=== PATIENT | female | born 1955 | race Caucasian/White ===

== ENCOUNTER → 2016-10-15 | Outpatient (CLI) | payer OTHER ==
--- NOTE | 2016-10-15 14:57 | REPMRS ---
Patient History The patient states she has not had a clinical breast exam in over a year. The patient states she has not had a clinical breast exam in over a year. Patient is postmenopausal. No known family history of cancer. Digital Woman Screen Mammo: October 15, 2016 - Exam #: [id number] Bilateral CC and MLO view(s) were taken. Technologist: Nikole Schmid, Technologist FINDINGS: The breast tissue is extremely dense which could obscure a lesion on mammography. There is no evidence of cancer on this mammogram. ASSESSMENT: BI-RADS/ACR category 2 mammogram. Benign finding(s). Recommendation Routine screening mammogram of both breasts in 1 year (for women over age 40). This mammogram was interpreted with the aid of an FDA-approved computer-aided dectection system. Electronically Signed By: Gurpreet Adams MD 10/15/16 [id number]
== END ==
LOC: M WHC 13:41
PROVIDERS: ATTEND Family Medicine
DX: Z12.31 Encounter for screening mammogram for malignant neoplasm of breast (principal); Z78.0 Asymptomatic menopausal state; R92.8 Other abnormal and inconclusive findings on diagnostic imaging of breast

== ENCOUNTER → 2017-02-04 | Outpatient (REF) | payer OTHER | LOC: M LAB REF 15:55 | PROVIDERS: ATTEND Physician Assistant | DX: N39.0 Urinary tract infection, site not specified (principal) ==

== ENCOUNTER → 2017-10-17 | Outpatient (CLI) | payer OTHER | LOC: M WHC 13:40 | DX: Z12.31 Encounter for screening mammogram for malignant neoplasm of breast (principal); N60.31 Fibrosclerosis of right breast; N60.32 Fibrosclerosis of left breast | CPT/HCPCS: 77067 ==

== ENCOUNTER → 2018-03-20 | Outpatient (CLI) | payer OTHER ==
--- NOTE | 2018-03-24 15:30 | DEXA ---
AP SPINE L1 - L4 1.211 0.1 1.7 LT FEMUR TOTAL 0.755 -2.0 -0.9 LT NECK 0.800 -1.7 -0.3 RT FEMUR TOTAL 0.764 -1.9 -0.8 RT NECK 0.787 -1.8 -0.4 TOTAL BODY TOTAL OTHER COMMENTS: Normal bone densitometry of the spine. There is low bone density of the hips. FOLLOW-UP: Recommendation for the next bone density exam: 2 years. TETE
== END ==
LOC: M WHC 07:04
PROVIDERS: ATTEND Family Medicine
DX: M85.851 Other specified disorders of bone density and structure, right thigh (principal); M85.852 Other specified disorders of bone density and structure, left thigh; Z82.62 Family history of osteoporosis

== ENCOUNTER → 2018-11-19 | Outpatient (CLI) | payer OTHER ==
--- NOTE | 2018-11-19 14:09 | REP ---
BILATERAL MAMMOGRAM: No family history of breast cancer. [facility] lifetime risk of breast cancer 2.7%. COMPARISON: 10/17/2017 and 10/15/2016. Breast parenchyma is extremely dense bilaterally limiting the sensitivity of the mammogram. There does appear to be a new 11 mm nodule posteriorly in the right breast, best seen on the CC view. It appears to be somewhat inferior on the MLO view. Otherwise there is no definite new mass. No clustered microcalcifications are seen. There are coarse benign type calcifications in the right breast. IMPRESSION: BIRADS 0: BI-RADS/ACR category 0 mammogram, Incomplete: Need additional imaging evaluation and/or prior mammograms for comparison. There appears to be a new 11 mm nodule posteriorly and somewhat inferiorly in the right breast. Recommend spot compression views and ultrasound to further evaluate. This mammogram was interpreted with the aid of an FDA-approved computer-aided detection system. The patient states he/she had a clinical breast exam in 09/2018. The patient letter being requested is M0.
== END ==
LOC: M WHC 12:47
PROVIDERS: ATTEND Family Medicine
DX: R92.2 Inconclusive mammogram (principal)

== ENCOUNTER → 2018-12-08 | Outpatient (CLI) | payer MEDICARE, OTHER ==
--- NOTE | 2018-12-08 12:46 | REP ---
DIAGNOSTIC MAMMOGRAM RIGHT BREAST WITH RIGHT BREAST ULTRASOUND: Spot compression views of the right breast performed in multiple projections and compared to prior mammogram of 11/19/2018 as well as other prior studies. Once again, there is a nodule in the inferolateral right breast somewhat posteriorly. It measures about 1.1 cm in diameter. It is new. Real-time sonographic evaluation of inferolateral right breast performed. In that region, there is an oval hypoechoic nodule with somewhat lobulated irregular borders. It measures 1.0 x 0.7 x 1.1 cm. This cannot definitely be characterized as benign. Recommend ultrasound-guided biopsy. IMPRESSION: BIRADS 4: BI-RADS/ACR category 4 mammogram. Suspicious Abnormality - biopsy should be considered. ACR 4 suspicious. New nodule inferolaterally in the posterior right breast corresponds to a hypoechoic nodule with somewhat irregular borders by ultrasound. Recommend ultrasound-guided biopsy with postprocedure mammogram. Patient letter to be sent is M4. Electronically Signed by Gurpreet Adams MD 12/08/2018 11:33 P
== END ==
LOC: M RAD 09:42
PROVIDERS: ATTEND Family Medicine
DX: N62 Hypertrophy of breast (principal); N63.0 Unspecified lump in unspecified breast

== ENCOUNTER → 2019-02-19 | Outpatient (CLI) | payer MEDICARE, OTHER ==
[~2019-02-19] MED LIST: ALIG4CAP PO; CELE1CAP4 PO; CLON1TAB17 PO; FLUT15.820 NARES; LIPI20TA PO; LISI10TA4 PO; MULTCAP PO; OMEP10CASR PO; TRAZ-163 PO; ZANA4CAP PO; ZYRTTAB8 PO
--- NOTE | 2019-02-26 09:03 | RADONC ---
RADIATION ONCOLOGY CONSULTATION NOTE DATE: 02/19/2019 CHART #: [id number] DIAGNOSIS: Right breast cancer. STAGE: I A , T1c, N0, M0, grade 3, ER positive, UT positive, HER2/xuan negative. ECOG PERFORMANCE STATUS: 0. CONSULTATION NOTE: Ms. 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 HISTORY OF PRESENT ILLNESS: The patient was in her usual state of health until routine mammogram done on 11/19/2018 was undertaken and revealed a new 11 mm nodule posteriorly and inferiorly in the right breast. On 01/27/2019, the patient underwent lumpectomy and sentinel lymph node biopsy. Pathology revealed a 1.2 cm x 1.1 cm x 0.9 cm poorly differentiated infiltrating ductal carcinoma. All margins of resection were negative. There was no evidence of lymph vascular invasion and no dermal lymph vascular invasion. A total of three sentinel lymph nodes were sampled and all were negative for malignancy. The tumor was found to be estrogen receptor positive, progesterone receptor positive and HER2/xuan negative. Oncotype testing was done and the results will be revealed by Dr. Muse to the patient on Saturday. She is now being referred to us for discussion of postoperative radiation therapy. PAST MEDICAL HISTORY: The patient's past medical history is positive for arthritis, GERD, hypertension and chronic back pain. ALLERGIES The patient is allergic to SULFA DRUGS. SOCIAL HISTORY: The patient has smoked approximately 10 cigarettes a day for the past 20 years. She drinks alcohol daily. FAMILY HISTORY: The patient's family history is negative for breast cancer or other malignancies. REVIEW OF SYSTEMS: The patient's review of systems is positive for some anxiety, but is otherwise noncontributory. Denies nausea, vomiting, fevers, chills, night sweats, diplopia, headaches, anxiety or depression, anorexia, weight loss, visual disturbances, chest pain, urinary or bowel difficulties, bone pain, or neurological problems. PHYSICAL EXAMINATION: The patient is a well-developed, well-nourished female in no acute distress. HEENT exam is normocephalic, atraumatic. Extraocular movements are intact. There is no palpable cervical, supraclavicular, infraclavicular, axillary, or inguinal lymphadenopathy present. Lungs are clear to auscultation and percussion. Heart has a regular rate and rhythm. Abdomen is benign with no hepatosplenomegaly, masses, or tenderness. Breast examination reveals no masses or discharge bilaterally. Skeletal examination reveals no tenderness to pressure or percussion of the bony skeleton. Extremities reveal no clubbing, cyanosis, or edema. Neurologic exam is grossly intact, as is the remainder of the physical examination. ASSESSMENT: Clearly, this patient is a candidate for external beam radiation therapy and I have so informed her. I have discussed with the patient in detail the potential benefits as well as possible acute and chronic sequelae of external beam radiation therapy. We discussed logistics of treatment planning, simulation and subsequent fractionated daily radiation treatments. The patient is scheduled to be seen by her medical oncologist, Dr. Muse, on Saturday to find out the results of Oncotype testing. Clearly, if the patient is going to receive chemotherapy that will be delivered first and the patient will then be referred back to us to initiate radiation at completion of chemotherapy. In the meantime, however, I am scheduling her for initiation of treatment planning and simulation. This way there will be no unnecessary delay. The patient has been instructed to contact us if she will be receiving chemotherapy and cancel that appointment. I discussed with the patient in detail the various options for her such as conventional fractionation versus hypofractionation. The patient appears to be leaning towards the hypofractionated treatment schedule. Thank you for allowing us to participate in the care of this very pleasant woman. I will keep you informed to any new developments as they occur. As always warm regards. cc: MD Shonna Gallegos MD Phillip Todd, MD
== END ==
LOC: M ONCR 12:39
PROVIDERS: ATTEND Radiology Radiation Oncology
DX: C50.911 Malignant neoplasm of unspecified site of right female breast (principal); M19.90 Unspecified osteoarthritis, unspecified site; K21.9 Gastro-esophageal reflux disease without esophagitis; I10 Essential (primary) hypertension; G89.29 Other chronic pain; M54.5 Low back pain; F17.210 Nicotine dependence, cigarettes, uncomplicated

== ENCOUNTER → 2019-06-02 | Outpatient (CLI) | payer MEDICARE, OTHER ==
[~2019-06-02] MED LIST changes: +CLAR10CA3 PO; -TRAZ-163 PO; +TRAZ-257 PO
--- NOTE | 2019-06-03 11:34 | RADONC ---
RADIATION ONCOLOGY CONSULTATION NOTE DATE: 06/02/2019 CHART #: [id number] DIAGNOSIS: Right breast cancer. STAGE: I A, T1c, N0, M0, grade 3, ER positive, ND positive, HER2/xuan negative. ECOG PERFORMANCE STATUS: 0. CONSULTATION NOTE: Ms. 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 Since that time, the patient was seen by medical oncology and has undergone systemic therapy consistent consisting of Taxotere and Cytoxan. The patient now has undergone her last systemic therapy and is representing to us for consideration of postoperative radiation therapy for conservative breast management. PAST MEDICAL HISTORY: The patient's past medical history is positive for arthritis, hypertension, GERD and chronic back pain. ALLERGIES: The patient is allergic to SULFA DRUGS. SOCIAL HISTORY: The patient has smoked approximately a half-a-pack of cigarettes per day for 20 years. She drinks alcohol daily. FAMILY HISTORY: The patient's family history is negative for breast cancer or other malignancies. REVIEW OF SYSTEMS: The patient's review of systems is noncontributory. Denies nausea, vomiting, fevers, chills, night sweats, diplopia, headaches, anxiety or depression, anorexia, weight loss, visual disturbances, chest pain, urinary or bowel difficulties, bone pain, or neurological problems. PHYSICAL EXAMINATION: Physical examination was deferred secondary to COVID-19 safety issues. ASSESSMENT: Clearly, the patient is a candidate for external beam radiation therapy and I have so informed her. We discussed logistics of treatment planning, simulation and subsequent fractionated daily radiation treatments. I have scheduled the patient for simulation and subsequent initiation of treatment. Thank you for allowing us to participate in the care of this very pleasant woman. I will keep you informed as to any new developments as they occur. As always warm regards. cc: MD Lon Gallegos MD Anna Shapiro, MD Phillip Todd, MD
== END ==
LOC: M ONCR 12:54
PROVIDERS: ATTEND Radiology Radiation Oncology
DX: C50.511 Malignant neoplasm of lower-outer quadrant of right female breast (principal)

== ENCOUNTER → 2019-07-02 | Outpatient (RCR) | payer MEDICARE, OTHER ==
--- NOTE | 2019-06-11 12:38 | RADONC ---
RADIATION ONCOLOGY SIMULATION NOTE DATE OF SERVICE: 06/11/2019 CHART NUMBER: [id number]. SIMULATION NOTE: Ms. Barlow was taken to the simulator today for CT simulation of her right breast field. CT was accomplished without difficulty or discomfort. Radiation treatment planning is underway, and radiation treatments will begin subsequently. An immobilization device was created without difficulty or discomfort. It will be used throughout the course of treatment. I was physically present throughout the course of CT simulation.
--- NOTE | 2019-06-22 14:06 | RADONC ---
RADIATION ONCOLOGY PROGRESS NOTE DATE: 06/22/2019 CHART #: [id number] Ms. Barlow underwent her first fraction of radiation today to her right breast for a dose of 267 cGy. Her treatment was tolerated without difficulty or discomfort. REVIEW OF SYSTEMS: The patient's review of systems remains unchanged. It is noncontributory. She denies nausea, vomiting, fevers, chills, night sweats, diplopia, headaches, anxiety or depression, anorexia, weight loss, visual disturbances, chest pain, urinary or bowel difficulties, bone pain, or neurological problems. PHYSICAL EXAMINATION: The patient's skin clearly shows no evidence of radiation change present since this was her first fraction of treatment. The remainder of her physical exam remains unchanged. Ms. Barlow tolerated her first fraction well and radiation will continue as scheduled.
--- NOTE | 2019-06-29 23:57 | RADONC ---
RADIATION ONCOLOGY PROGRESS NOTE DATE: 06/29/2019 CHART NUMBER: [id number] Ms. Bralow is presently at a dose of 1602 cGy to her right breast and is tolerating treatments quite well at this point with no significant difficulties related to her radiation therapy. She has no significant breast or bone pain. REVIEW OF SYSTEMS: The patient's review of systems is positive for some slight swelling of the breast and is otherwise noncontributory. She denies nausea, vomiting, fevers, chills, night sweats, diplopia, headaches, anxiety or depression, anorexia, weight loss, visual disturbances, chest pain, urinary or bowel difficulties, bone pain, or neurological problems. PHYSICAL EXAMINATION: The patient's skin is in excellent condition with no evidence of moist or dry desquamation. There is no significant tanning or erythema present. There is some mild edema present. The remainder of her physical exam remains unchanged. Ms. Barlow is tolerating treatments quite well and radiation will continue as scheduled.
== END ==
LOC: M ONCR 06-11 10:20
PROVIDERS: ATTEND Radiology Radiation Oncology
DX: C50.511 Malignant neoplasm of lower-outer quadrant of right female breast (principal)

== ENCOUNTER 2019-07-17 09:39 | Outpatient (RCR) | payer MEDICARE, OTHER ==
--- NOTE | 2019-07-09 08:27 | RADONC ---
RADIATION ONCOLOGY PROGRESS NOTE DATE: 07/06/2019 CHART #: [id number] Ms. Barlow is presently a dose of 2937 cGy to her right breast and is tolerating treatments quite well at this point with no complaints related to her radiation therapy. She has no breast or bone pain. REVIEW OF SYSTEMS: The patient's review of systems is noncontributory. Denies nausea, vomiting, fevers, chills, night sweats, diplopia, headaches, anxiety or depression, anorexia, weight loss, visual disturbances, chest pain, urinary or bowel difficulties, bone pain, or neurological problems. PHYSICAL EXAMINATION: The patient's skin is in good condition with no evidence of moist or dry desquamation. The remainder of her physical exam remains unchanged. Ms. Barlow is tolerating treatments quite well and radiation will continue as scheduled.
--- NOTE | 2019-07-14 11:33 | RADONC ---
RADIATION ONCOLOGY PROGRESS NOTE DATE OF SERVICE: 07/13/2019 CHART NUMBER: [id number]. PROGRESS NOTE: Ms. Barlow is presently at a dose of 4185 cGy to her right breast primary site area and is tolerating treatments quite well at this point with no complaints related to her radiation therapy. She has no breast pain. She has no bone pain. REVIEW OF SYSTEMS: The patient's review of systems is noncontributory. She denies nausea, vomiting, fevers, chills, night sweats, diplopia, headaches, anxiety or depression, anorexia, weight loss, visual disturbances, chest pain, urinary or bowel difficulties, bone pain, or neurological problems. PHYSICAL EXAMINATION: The patient's skin shows erythema and tanning present but overall is in good condition with no evidence of moist or dry desquamation. The remainder of her physical exam remains unchanged. Ms. Barlow is tolerating treatments quite well, and radiation will continue as scheduled.
--- NOTE | 2019-07-21 17:08 | RADONC ---
RADIATION ONCOLOGY TREATMENT SUMMARY DATE: 07/17/2019 CHART NUMBER: [id number] DIAGNOSIS: Right breast cancer. STAGE: 1A, T1c, N0, M0, grade 3, ER positive, AZ positive, HER2/xuan negative. ECOG PERFORMANCE STATUS: 0. TREATMENT SUMMARY: Ms. 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 We treated the patient to her right breast for a total dose of 4005 cGy delivered in 15 fractions of 267 cGy each over 18 elapsed days from 06/22/2019 through 07/10/2019. The patient's right breast was treated on a linear accelerator utilizing a 3D conformal technique with medial and lateral tangential agrawal and a 6MV photon beam. Following completion of 4005 cGy to the entire right breast, the primary site was boosted for an additional 900 cGy delivered in five fractions of 180 cGy each over four elapsed days from 07/13/2019 through 07/17/2019. The patient's right breast primary site boost was treated on a linear accelerator utilizing a 12 MEV electron beam prescribed to the 90% isodose line via an en face technique. This brought the primary site to a total dose of 4905 cGy delivered in 20 fractions over 22 elapsed days from 06/22/2019 through 07/17/2019. Ms. Barlow tolerated her treatments quite well and was able complete therapy as prescribed. I have scheduled the patient to see me again in 1 month for further followup. She will also continue to be followed by her other physicians as well. cc: MD Lon Gallegos MD Anna Shapiro, MD Phillip Todd, MD
== END 2019-08-02 ==
LOC: M ONCR 09:39
PROVIDERS: ATTEND Radiology Radiation Oncology
DX: C50.511 Malignant neoplasm of lower-outer quadrant of right female breast (principal)

== ENCOUNTER → 2019-08-18 | Outpatient (CLI) | payer MEDICARE, OTHER ==
--- NOTE | 2019-08-20 10:12 | RADONC ---
RADIATION ONCOLOGY FOLLOWUP NOTE DATE: 08/18/2019 This is a telemedicine visit. The patient was informed of the risks including security breech, technological failure, inability to perform a comprehensive physical exam which could delay or prevent an accurate diagnosis, and potential complications from treatment decisions rendered over a telemedicine platform. The patient understands and consented to the use of telehealth services phone only. CHART NUMBER: [id number] DIAGNOSIS: Right breast cancer. STAGE: I A, T1c, N0, M0, grade 3, ER positive, AL positive, HER2/xuan negative. ECOG PERFORMANCE STATUS: 0 FOLLOWUP NOTE: Ms. 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 The patient presents today reporting that she is doing quite well with no complaints at this time related to her radiation therapy or disease. She has no breast or bone pain. REVIEW OF SYSTEMS: The patient's review of systems is noncontributory. Denies nausea, vomiting, fevers, chills, night sweats, diplopia, headaches, anxiety or depression, anorexia, weight loss, visual disturbances, chest pain, urinary or bowel difficulties, bone pain, or neurological problems. PHYSICAL EXAMINATION: Physical examination was deferred at this time as per COVID-19 precautions. This was a telephone consult. The patient however reports that she was seen and examined by her other physicians, including doctor Lamar Milton MD and doctor Lon Muse MD who noted complete healing of her skin with no abnormalities. ASSESSMENT: The patient is clinically YUE at this time. I have scheduled her to be seen in our center in 4 months for further followup. She will also continue be followed by her other physicians as well. cc: MD Lon Gallegos MD Anna Shapiro, MD Phillip Todd, MD
== END ==
LOC: M ONCR 13:16
PROVIDERS: ATTEND Radiology Radiation Oncology
DX: C50.511 Malignant neoplasm of lower-outer quadrant of right female breast (principal)

== ENCOUNTER → 2019-10-05 | Emergency (ER) | payer MEDICARE, OTHER ==
[~2019-10-05] MED LIST changes: +ATOR40TA75 PO; +CLON0.5T2 PO; +KLON0.5T PO; +LETR2.5T2 PO; +LORA-674 PO; +OMEP1CAP73 PO; +PERC7.5T11 PO; +POTASSIUM CHLORIDE 10 MEQ SR TABLET ONE
--- NOTE | 2019-11-17 14:12 | ECGEPIP ---
[facility] - ED Test Date: 2019-10-05 Pat Name: JESEINA HOBBS Department: Room: - Gender: Female [employer]: : [id number] Requested By: EMERGENCY ROOM Order Number: [id number] Reading MD: Carisa Roman Measurements Intervals [place] Rate: 96 P: 34 NJ: 146 QRS: -30 QRSD: 106 T: 15 QT: 394 QTc: 499 Interpretive Statements SINUS RHYTHM BORDERLINE LEFT AXIS DEVIATION LOW QRS VOLTAGE IN EXTREMITY LEADS INCOMPLETE RIGHT BUNDLE BRANCH BLOCK BORDERLINE ECG NO OLD SEE SCANNED DOWNTIME RECORD
[2019-11-22 03:46] LABS: BASO % 0.3 % (0.0-1.0); HEMATOCRIT 25.4 % (36.0-47.0); HEMOGLOBIN 8.5 g/dl (12.0-15.5); LYMPH # 1.2 10^3/uL (1.5-5.0); LYMPH % 9.8 % (24.0-44.0); MEAN CORPUSCULAR HEMOGLOBIN 30.8 pg (27.0-33.0); MEAN CORPUSCULAR HGB CONC 33.5 g/dl (32.0-36.5); MONO # 0.7 10^3/uL (0.0-0.8); MONO % 5.9 % (0.0-5.0); NEUTROPHILS % 83.7 % (36.0-66.0); PLATELET COUNT, AUTOMATED 282 10^3/uL (150-450); RED BLOOD COUNT 2.76 10^6/uL (4.00-5.40)
== END | disposition home or self-care (01) ==
LOC: M ED 11:50
DX: E86.0 Dehydration (principal); R68.2 Dry mouth, unspecified; Z78.0 Asymptomatic menopausal state; Z85.3 Personal history of malignant neoplasm of breast; Z88.2 Allergy status to sulfonamides; I10 Essential (primary) hypertension; Z90.49 Acquired absence of other specified parts of digestive tract; Z79.891 Long term (current) use of opiate analgesic; Z79.899 Other long term (current) drug therapy; Z79.1 Long term (current) use of non-steroidal anti-inflammatories (NSAID)

== ENCOUNTER → 2019-10-20 | Outpatient (CLI) | payer MEDICARE, OTHER ==
[~2019-10-20] MED LIST changes: -POTASSIUM CHLORIDE 10 MEQ SR TABLET ONE
[2019-12-16 12:05] LABS: BLOOD UREA NITROGEN 15 MG/DL (7-18); CREATININE FOR GFR 0.78 MG/DL (0.55-1.30); GLOMERULAR FILTRATION RATE > 60.0 (>45)
== END ==
LOC: M LAB 13:49
PROVIDERS: ATTEND Surgery
DX: R14.0 Abdominal distension (gaseous) (principal); K56.690 Other partial intestinal obstruction

== ENCOUNTER → 2019-11-06 | Outpatient (CLI) | payer MEDICARE, OTHER ==
[~2019-11-06] MED LIST changes: +GASTROGRAFIN SOLUTION 30ML (Q9963) As Ordered ONE; +ISOVUE-370 76% 100ML VIAL As Ordered ONE
--- NOTE | 2019-11-19 11:23 | REP ---
CONTRAST CT OF THE ABDOMEN AND PELVIS: 11/06/19 CLINICAL: Abdominal distention. Status post bowel resection TECHNIQUE: Axial images from the lung bases to the pubic symphysis using oral contrast material with coronal and sagittal reformations. COMPARISON: 09/19/19 FINDINGS: Lung bases are clear. Visualized heart and pericardium grossly normal. Liver, spleen, pancreas, gallbladder, bilateral adrenal glands and kidneys are relatively normal/stable. Small 1cm left adrenal adenoma again noted. The enteric system demonstrates satisfactory opacification without evidence for obstruction or focal acute inflammatory process. No free air. No significant ascites. Pelvis demonstrates collapsed bladder and findings to suggest prior hysterectomy. No ascites. No free air. No adenopathy. Atherosclerotic changes to the aorta and vasculature without aneurysm. Musculoskeletal structures demonstrate degenerative changes without acute osseous abnormality. IMPRESSION: 1. Appropriate intraluminal enhancement of the small and large bowel without obstruction or acute inflammatory process. 2. No ascites or free air. 3. Stable small 1cm left adrenal adenoma. MTDD
== END ==
LOC: M RAD 13:32
PROVIDERS: ATTEND Surgery
DX: D35.00 Benign neoplasm of unspecified adrenal gland (principal); R14.0 Abdominal distension (gaseous); Z48.89 Encounter for other specified surgical aftercare
CPT/HCPCS: 74176; Q9963

== ENCOUNTER → 2019-12-16 | Outpatient (CLI) | payer MEDICARE, OTHER ==
[~2019-12-16] MED LIST changes: -GASTROGRAFIN SOLUTION 30ML (Q9963) As Ordered ONE; -ISOVUE-370 76% 100ML VIAL As Ordered ONE
--- NOTE | 2019-12-16 11:56 | RADONC ---
Radiation Oncology Hx/FUP Radiation Oncology Hx/FUP Date of Service: Dec 16, 2019 Pt Identifier Jennifer Barlow is a 63 year old female seen for a followup visit today at the department of radiation oncology for a history of mammogram detected right breast cancer pT1cN0(sn)M0 ER/DC+ HER2- Grade 3, Oncotype 46. She had lumpectomy and SLNB on 01/26/19 followed by adjuvant TC chemo therapy x4 completed 04/29/19 and adjuvant RT 40 Gy in 15 fractions to the right breast followed by 9 Gy in 5 fractions tumor bed boost completed 07/17/19. Diagnosis/Treatment History Oncologic History As above Interval History Feels better, had a SBO, and resection over the Summer and as a result lost 35 lbs. Now gaining weight again. She has no skin complaints or pain in the breast axilla or RUE. Has mammograms scheduled for February in [place]. Sees her medical and surgical oncologists there in the coming months as well. Current Therapy Letrozole Stage pT1cN0(sn)M0 ER/DC+ HER2- Gr 3 stage IA right breast cancer Social History: 1/2ppd smoker for 20 years Drinks alcohol daily Allergies / Meds Allergies: Coded Allergies: Sulfa (Sulfonamide Antibiotics) (Verified Allergy, Intermediate, 09/17/19) Home Meds Reported Medications Oxycodone HCl/Acetaminophen (Percocet 7.5-325 mg Tablet) 1 Each Tablet, 1 TAB PO DAILY, TAB 09/17/19 Clonazepam (Klonopin) 0.5 Mg Tablet, 0.5 MG PO DAILY PRN for ANXIETY, TAB 09/17/19 Loratadine (Loratadine) 10 Mg Tablet, 10 MG PO DAILY, TAB 09/17/19 Clonazepam (Clonazepam) 0.5 Mg Tablet, 0.5 MG PO DAILY, TAB 09/17/19 Omeprazole (Omeprazole) 20 Mg Capsule.dr, 20 MG PO DAILY, CAP 09/17/19 Atorvastatin Calcium (Atorvastatin Calcium) 40 Mg Tablet, 40 MG PO DAILY, TAB 09/17/19 Letrozole (Letrozole) 2.5 Mg Tablet, 2.5 MG PO DAILY 09/17/19 Celecoxib (Celebrex) 200 Mg Capsule, 200 MG PO DAILY 02/19/19 Bifidobacterium Infantis (Align) 4 Mg Capsule, 4 MG PO DAILY 02/19/19 Fluticasone Propionate (Fluticasone Propionate) 15.8 Ml [place].susp, 2 SPRAY N YRN DAILY 02/19/19 Lisinopril (Lisinopril) 10 Mg Tablet, 10 MG PO DAILY 02/19/19 Trazodone HCl (Trazodone HCl) 100 Mg Tablet, 100 MG PO QHS 02/19/19 Multivitamin (Multivitamins) 1 Each Capsule, 1 CAP PO DAILY 02/19/19 Review of Systems Review of Systems Constitutional: Denies: ROS Unabtainable, Chills, Fever, Malaise, Night Sweats, Weakness, Fatigue, Weight Loss, Lethargy, Normal appetite, Other symptoms Eyes: Denies: Pain, Vision change, Conjunctivae inflammation, Eyelid inflammation, Redness, Other HEENT: Denies: Head Aches, Ear Pain, Dysphagia, Sinus Congestion, Post Nasal Drip, Sore Throat, Epistaxis, Other Symptoms Skin: Denies: Rash, Lesions, Jaundice, Bruising, Other Breast: Denies: New Breast Lumps / Masses, Nipple Retraction, Nipple Discharge, Breast Skin Changes, Breast Pain or Tenderness, Other Breast Complaints Pulmonary: Denies: Dyspnea, Cough, Pleuritic Chest Pain, Other Symptoms Cardiovascular: Denies: Chest Pain, Palpitations, Orthopnea, Paroxysmal Noc. Dyspnea, Edema, Lt Headedness, Other Symptoms Gastrointestinal: Denies: Nausea, Vomiting, Abdominal Pain, Diarrhea, Constipation, Melena, Hematochezia, Other Symptoms Genitourinary: Denies: Dysuria, Frequency, Incontinence, Hematuria, Retention, Other Symptoms Hematologic: Denies: Bruising, Bleeding Excessively, Petecchia, Purpura, Enlarged Lymph Nodes, Other Hematologic Endocrine: Denies: Polydipsia, Polyphagia, Polyuria, Heat Intolerance, Cold Intolerance, Other Endocrine Sx Musculoskeletal: Denies: Neck pain, Shoulder pain, Arm pain, Back pain, Hand pain, Leg pain, Foot pain, Joint pain, Muscle pain, Spasms, Gout, Joint sweling, Muscle stiffness, Midthoracic pain, Other Neurological: Denies: Weakness, Numbness, Incoordination, Change in Speech, Confusion, Seizures, Other Symptoms Psych: Denies: Mood Normal, Anxiety, Depression, Memory Issues, Thoughts of Self Harm, Anger, Thoughts of harming Other, Other Psych Physical Examination Vital Signs Wt 100 lb T 98 P 102 RR 16 BP 120/75 O2 96% Pain 0 Fatigue 0 General Exam: Positive: Alert, No Acute Distress Eye Exam: Positive: PERRLA, EOMI ENT EXAM: Positive: Atraumatic, Pharynx Normal Neck Exam: Positive: Supple; Negative: Lymphadenopathy Chest Exam: Positive: Clear to auscultation, Normal air movement Heart Exam: Positive: Rate Normal Breast Exam: Positive: Symmetric Bilaterally, Skin Changes (Mild hyperpigmentation right breast in IMF); Negative: Lumps or Masses, Nipple Retraction, Nipple Discharge, Other Breast Findings (No axillary masses BL, Right breast without palpable lesions, there is palpable fibrosis in the 3-6 o'clock location correlating well with tumor bed. Left breast without palbable abnormality) Abdomen Exam: Positive: Normal bowel sounds, Soft; Negative: Tenderness Extremity Exam: Negative: Edema Skin Exam: Positive: Nl turgor and temperature; Negative: Rash, Lesion Neuro Exam: Positive: Normal Gait, Cranial Nerves 3-12 NL Psych Exam: Positive: Mental status NL, Mood NL; Negative: Anxiety Diagnostic and Laboratory Diagnostic Review Radiologic images, relevant labs and pathology reports were personally reviewed and discussed with Ms. Barlow. Assessment and Plan Impression Assessment Ms. Barlow is a 63 year old female with a history of mammogram detected right breast cancer pT1cN0(sn)M0 ER/DC+ HER2- Grade 3, Oncotype 46. She had lumpectomy and SLNB on 01/26/19 followed by adjuvant TC chemo therapy x4 completed 04/29/19 and adjuvant RT 40 Gy in 15 fractions to the right breast followed by 9 Gy in 5 fractions tumor bed boost completed 07/17/19. She is doing well overall, recovering from major bowel surgery, now gaining weight again. She has no evidence of recurrent breast cancer on exam today. She has minimal hyperpigmentation of the skin in the IMF and palpable post-surgical post-RT fibrosis of the right breast as her only sequelae of treatment. She follows faithfully in [place] with her surgeon and medical oncologist. She has schedul ed mammograms in February 2020. Because of her close follow up elsewhere I will see her again in 1 year. Performance Status ECOG 0 Plan 1 year follow up Ms. Barlow was encouraged to call with questions or concerns in the interim period. ELIZABETH MCCOY MD Dec 16, 2019 11:56
== END ==
LOC: M ONCR 10:53
PROVIDERS: ATTEND General Practice
DX: C50.511 Malignant neoplasm of lower-outer quadrant of right female breast (principal)

== ENCOUNTER → 2020-04-28 | Outpatient (REF) | payer MEDICARE, OTHER ==
[~2020-04-28] MED LIST changes: +LISI10TA22 PO; -LISI10TA4 PO
== END ==
LOC: M WUC 20:15
PROVIDERS: ATTEND Physician Assistant
DX: N39.0 Urinary tract infection, site not specified (principal)

== ENCOUNTER → 2020-05-27 | Outpatient (CLI) | payer MEDICARE, OTHER ==
--- NOTE | 2020-05-27 16:32 | DEXAMM ---
INDICATION: USE OF AROMATASE INHIBITORS. COMPARISON: Comparison study March 20, 2018.. TECHNIQUE: Bone density was measured using dual-energy x-ray absorptionmetry (DEXA). FINDINGS: AP SPINE L1-L4 BMD 1.085 g/cm2 Young Adult T-Score -0.9 Age Matched Z-Score 0.7. LT FEMUR, TOTAL BMD 0.691 g/cm2 Young Adult T-Score -2.5 Age Matched Z-Score -1.2. LT NECK BMD 0.804 g/cm2 Young Adult T-Score -1.7 Age Matched Z-Score -0.2. RT FEMUR, TOTAL BMD 0.672 g/cm2 Young Adult T-Score -2.7 Age Matched Z-Score -1.4. RT NECK BMD 0.724 g/cm2 Young Adult T-Score -2.3 Age Matched Z-Score -0.7. IMPRESSION: There is normal bone density of the spine. There is low bone density of the left hip. There is osteoporosis of the right hip. The density of the spine has decreased 10.4% since the initial exam on March 20, 2018. The density of the left hip has decreased 8.5% since initial exam on March 20, 2018. The density of the right hip has decreased 12.0% since the initial exam on March 20, 2018. FOLLOW-UP: Recommendation for the next bone density exam: 2 years. <Electronically signed by Aubrey Soriano > 05/27/20 [id number]
== END ==
LOC: M WHC 12:38
PROVIDERS: ATTEND Internal Medicine Medical Oncology
DX: M81.0 Age-related osteoporosis without current pathological fracture (principal); Z79.811 Long term (current) use of aromatase inhibitors

== ENCOUNTER → 2020-12-21 | Outpatient (CLI) | payer MEDICARE, OTHER ==
--- NOTE | 2020-12-21 13:57 | RADONC ---
Radiation Oncology Hx/FUP Radiation Oncology Hx/FUP Date of Service: Dec 21, 2020 Pt Identifier Jennifer Barlow is a 64 year old female seen for a followup visit today at the department of radiation oncology for a history of mammogram detected right breast cancer pT1cN0(sn)M0 ER/AL+ HER2- Grade 3, Oncotype 46. She had lumpectomy and SLNB on 01/26/19 followed by adjuvant TC chemo therapy x4 completed 04/29/19 and adjuvant RT 40 Gy in 15 fractions to the right breast followed by 9 Gy in 5 fractions tumor bed boost completed 07/17/19. Diagnosis/Treatment History Oncologic History As above Test Due Next Last result Notes TSH, T4* 6m post-tx, then q1y N/A Carotid US* q10 y post-tx N/A Smoking cessation Assess annually if applicable @ Every visit Not ready to quit Screening CT chest q1y if eligible per USPSTF 2021 Mammograms Min q1y, if breast conservation February negative CBC,CMP, Lipids q1y 2021 DEXA q2y if on AI 2022 Per med onc Interval History Feels well overall. On medical marijuana to try and gain weight having some limited success with this. No abdominal complaints however. Notes some induration of the right breast. No pain. Has mammograms upcoming in February 2021. Continues to follow med onc and surgery in [place]. Current Therapy Letrozole Stage pT1cN0(sn)M0 ER/AL+ HER2- Gr 3 stage IA right breast cancer Social History: 1/2ppd smoker for 20 years Drinks alcohol daily Allergies / Meds Allergies: Coded Allergies: Sulfa (Sulfonamide Antibiotics) (Verified Allergy, Intermediate, 09/17/19) Home Meds Reported Medications Oxycodone HCl/Acetaminophen (Percocet 7.5-325 mg Tablet) 1 Each Tablet, 1 TAB PO DAILY, TAB 09/17/19 Clonazepam (Klonopin) 0.5 Mg Tablet, 0.5 MG PO DAILY PRN for ANXIETY, TAB 09/17/19 Loratadine (Loratadine) 10 Mg Tablet, 10 MG PO DAILY, TAB 09/17/19 Clonazepam (Clonazepam) 0.5 Mg Tablet, 0.5 MG PO DAILY, TAB 09/17/19 Omeprazole (Omeprazole) 20 Mg Capsule.dr, 20 MG PO DAILY, CAP 09/17/19 Atorvastatin Calcium (Atorvastatin Calcium) 40 Mg Tablet, 40 MG PO DAILY, TAB 09/17/19 Letrozole (Letrozole) 2.5 Mg Tablet, 2.5 MG PO DAILY 09/17/19 Celecoxib (Celebrex) 200 Mg Capsule, 200 MG PO DAILY 02/19/19 Bifidobacterium Infantis (Align) 4 Mg Capsule, 4 MG PO DAILY 02/19/19 Fluticasone Propionate (Fluticasone Propionate) 15.8 Ml [place].susp, 2 SPRAY [place] DAILY 02/19/19 Lisinopril (Lisinopril) 10 Mg Tablet, 10 MG PO DAILY 02/19/19 Trazodone HCl (Trazodone HCl) 100 Mg Tablet, 100 MG PO QHS 02/19/19 Multivitamin (Multivitamins) 1 Each Capsule, 1 CAP PO DAILY 02/19/19 Review of Systems Review of Systems Constitutional: Denies: Chills, Fatigue, Weight Loss Eyes: Denies: Pain HEENT: Denies: Head Aches Skin: Denies: Rash Breast: Denies: New Breast Lumps / Masses, Nipple Retraction, Breast Pain or Tenderness Pulmonary: Denies: Dyspnea Cardiovascular: Denies: Chest Pain Gastrointestinal: Denies: Abdominal Pain Musculoskeletal: Denies: Back pain Neurological: Denies: Weakness, Numbness Psych: Reports: Mood Normal Physical Examination Vital Signs Wt 96.4 lbs T 97.4 P 68 RR 16 BP 123/74 O2 97% Pain 0 Fatigue 0 General Exam: Alert, Cooperative, No Acute Distress Eye Exam: PERRLA, EOMI ENT EXAM: Atraumatic Neck Exam: Supple Chest Exam: Clear to auscultation Heart Exam: Rate Normal Breast Exam: Negative: Symmetric Bilaterally (There is mild hyperpigmentation and slight retraction of the right breast, there is palpable fibrosis in the superomedial right breast. No palpable breast lesions or axillary lesions BL) Extremity Exam: Negative: Edema Skin Exam: Nl turgor and temperature Neuro Exam: Normal Gait, Normal Speech, Cranial Nerves 3-12 NL Psych Exam: Mental status NL Diagnostic and Laboratory Diagnostic Review Radiologic images, relevant labs and pathology reports were personally reviewed and discussed with Ms. Barlow. Assessment and Plan Impression Assessment Ms. Barlow is a 64 year old female with a history of mammogram detected right breast cancer pT1cN0(sn)M0 ER/AL+ HER2- Grade 3, Oncotype 46. She had lumpectomy and SLNB on 01/26/19 followed by adjuvant TC chemo therapy x4 completed 04/29/19 and adjuvant RT 40 Gy in 15 fractions to the right breast followed by 9 Gy in 5 fractions tumor bed boost completed 07/17/19. She is doing well. Has requisite mammographic follow up in place. No evidence of recurrent disease on exam today. She does have some hyperpigmentation and mild retraction of the right breast, which is c/w post-RT sequelae. I will see her again in 1 year. Performance Status ECOG 0 Plan Follow up in 1 year Ms. Barlow was encouraged to call with questions or concerns in the interim period. Billing Statement Total time of [23] minutes was spent preparing for the visit [1], obtaining HPI [4], examining the patient [4], reviewing diagnostic tests [2], discussing management options [5], coordinating care [1], and writing this note [23]. ELIZABETH MCCOY MD Dec 21, 2020 13:56
== END ==
LOC: M ONCR 10:43
PROVIDERS: ATTEND General Practice
DX: C50.511 Malignant neoplasm of lower-outer quadrant of right female breast (principal); F17.210 Nicotine dependence, cigarettes, uncomplicated; Z79.899 Other long term (current) drug therapy; Z88.2 Allergy status to sulfonamides; Z92.21 Personal history of antineoplastic chemotherapy; Z92.3 Personal history of irradiation

== ENCOUNTER 2021-04-05 12:21 | Outpatient (CLI) | payer MEDICARE, OTHER ==
[~2021-04-05] VITALS: Ht 167.6 cm; Wt 44.0 kg
[2021-04-05 12:25] VITALS: BP 136/63
[2021-04-05] MEDS ORDERED: DENOSUMAB 60MG/1ML SYRINGE (PROLIA) SC ONE (12:30)
[2021-04-05] MEDS ORDERED: OXYC1TAB23 PO (12:39)
[2021-04-05] MEDS ORDERED: DRON5CAP13 PO (12:40)
[2021-04-05 13:35] VITALS: BP 126/59
== END 2021-04-05 13:35 | disposition home or self-care (01) ==
LOC: M INFU 12:21
PROVIDERS: ATTEND Student in an Organized Health Care Education/Training Program
DX: M81.8 Other osteoporosis without current pathological fracture (principal); Z88.2 Allergy status to sulfonamides
CPT/HCPCS: 96372; J0897

== ENCOUNTER → 2021-10-02 | Outpatient (REF) | payer MEDICARE, OTHER ==
[~2021-10-02] MED LIST changes: +DRON5CAP13 PO; +NORV5TAB PO; +OXYC1TAB23 PO
== END ==
LOC: M LAB REF 15:37
PROVIDERS: ATTEND Physician Assistant
DX: N39.0 Urinary tract infection, site not specified (principal)

== ENCOUNTER 2021-10-03 12:28 | Outpatient (CLI) | payer MEDICARE, OTHER ==
[~2021-10-03] VITALS: Ht 165.1 cm; Wt 44.5 kg
[~2021-10-03 12:28] MED LIST changes: -NORV5TAB PO
[2021-10-03 12:30] VITALS: BP 121/65
[2021-10-03] MEDS ORDERED: DENOSUMAB 60MG/1ML SYRINGE (PROLIA) SC ONE (12:30)
[2021-10-03] MEDS ORDERED: NORV5TAB PO (13:02)
[2021-10-03 13:05] VITALS: BP 119/66
== END 2021-10-03 13:05 | disposition home or self-care (01) ==
LOC: M INFU 12:28
PROVIDERS: ATTEND Student in an Organized Health Care Education/Training Program
DX: M81.8 Other osteoporosis without current pathological fracture (principal); Z88.2 Allergy status to sulfonamides
CPT/HCPCS: 96372; J0897

== ENCOUNTER → 2021-12-27 | Outpatient (CLI) | payer MEDICARE, OTHER ==
[~2021-12-27] MED LIST changes: +NORV5TAB PO
== END ==
LOC: M ONCR 10:28
PROVIDERS: ATTEND General Practice
DX: C50.511 Malignant neoplasm of lower-outer quadrant of right female breast (principal); Z92.21 Personal history of antineoplastic chemotherapy; Z92.3 Personal history of irradiation; Z88.2 Allergy status to sulfonamides; Z79.899 Other long term (current) drug therapy; Z79.891 Long term (current) use of opiate analgesic

== ENCOUNTER 2022-06-06 13:10 | Outpatient (CLI) | payer MEDICARE, OTHER ==
[~2022-06-06] VITALS: Ht 162.6 cm; Wt 42.0 kg
[2022-06-06 13:45] VITALS: BP 137/72
[2022-06-06] MEDS ORDERED: DENOSUMAB 60MG/1ML SYRINGE (PROLIA) SC ONE (14:00)
[2022-06-06 14:10] VITALS: BP 125/71
== END 2022-06-06 14:10 | disposition home or self-care (01) ==
LOC: M INFU 13:10
PROVIDERS: ATTEND Student in an Organized Health Care Education/Training Program
DX: M81.8 Other osteoporosis without current pathological fracture (principal); Z88.2 Allergy status to sulfonamides
CPT/HCPCS: 96372; J0897

== ENCOUNTER 2022-06-23 14:50 | Emergency (ER) | payer MEDICARE, OTHER ==
[~2022-06-23] VITALS: Ht 165.1 cm; Wt 38.6 kg
[2022-06-23] MEDS ORDERED: NS 500 ML IV ONE (15:45)
[2022-06-23 15:59] LABS: BASO % 0.2 % (0.0-1.0); HEMATOCRIT 35.8 % (36.0-47.0); HEMOGLOBIN 11.9 g/dl (12.0-15.5); LYMPH # 0.9 10^3/uL (1.5-5.0); LYMPH % 9.7 % (24.0-44.0); MEAN CORPUSCULAR HGB CONC 33.2 g/dl (32.0-36.5); MEAN CORPUSCULAR VOLUME 99.2 fl (80.0-96.0); MONO % 10.7 % (2.0-8.0); NEUTROPHILS # 7.1 10^3/uL (1.5-8.5); NEUTROPHILS % 79.1 % (36.0-66.0); PLATELET COUNT, AUTOMATED 370 10^3/uL (150-450); RED BLOOD COUNT 3.61 10^6/uL (4.00-5.40)
[2022-06-23] MEDS ORDERED: MORPHINE 4 MG/ML 1ML VIAL IV ONE (16:00)
[2022-06-23 16:16] LABS: INR 0.84; PARTIAL THROMBOPLASTIN TIME 27.7 SECONDS (24.8-34.2); PROTHROMBIN TIME 11.7 SECONDS (12.5-14.5)
[2022-06-23] MEDS ORDERED: ISOVUE-370 76% 100ML VIAL As Ordered ONE (16:23)
[2022-06-23 16:34] LABS: ALBUMIN 3.3 G/DL (3.2-5.2); BILIRUBIN,DIRECT 0.1 MG/DL (<0.4); BILIRUBIN,TOTAL 0.3 MG/DL (0.3-1.2); TOTAL PROTEIN 6.4 G/DL (5.7-8.2)
[2022-06-23 19:01] VITALS: BP 148/67
== END 2022-06-23 19:12 | disposition home or self-care (01) ==
LOC: M ED 14:50
DX: S22.000A Wedge compression fracture of unspecified thoracic vertebra, initial encounter for closed fracture (principal); R59.9 Enlarged lymph nodes, unspecified; R91.1 Solitary pulmonary nodule; F17.200 Nicotine dependence, unspecified, uncomplicated; I10 Essential (primary) hypertension; M54.50 Low back pain, unspecified; Z88.2 Allergy status to sulfonamides; Z79.811 Long term (current) use of aromatase inhibitors; Z79.810 Long term (current) use of selective estrogen receptor modulators (SERMs); Z79.899 Other long term (current) drug therapy
CPT/HCPCS: 71275; 80047; 80076; 83690; 83880; 84295; 85025; 85610; 85730; 93971; 96374; 99284; Q9967

== ENCOUNTER 2022-07-04 09:40 | Inpatient (IN) | payer MEDICARE, OTHER ==
[~2022-07-04] VITALS: Ht 165.1 cm; Wt 39.8 kg
[~2022-07-04 09:40] MED LIST changes: +FLUT15.820; -FLUT15.820 NARES
[2022-07-04] MEDS ORDERED: ONDANSETRON 4MG 2ML VIAL IV ONE (10:00)
[2022-07-04 10:25] LABS: BASO % 0.1 % (0.0-1.0); HEMATOCRIT 33.3 % (36.0-47.0); HEMOGLOBIN 11.5 g/dl (12.0-15.5); LYMPH # 0.5 10^3/uL (1.5-5.0); LYMPH % 4.3 % (24.0-44.0); MEAN CORPUSCULAR HEMOGLOBIN 33.2 pg (27.0-33.0); MEAN CORPUSCULAR HGB CONC 34.5 g/dl (32.0-36.5); MEAN CORPUSCULAR VOLUME 96.2 fl (80.0-96.0); MONO # 1.1 10^3/uL (0.0-0.8); MONO % 10.5 % (2.0-8.0); NEUTROPHILS # 8.9 10^3/uL (1.5-8.5); NEUTROPHILS % 84.2 % (36.0-66.0); PLATELET COUNT, AUTOMATED 358 10^3/uL (150-450); RED BLOOD COUNT 3.46 10^6/uL (4.00-5.40); WHITE BLOOD COUNT 10.5 10^3/uL (4.0-10.0)
[2022-07-04] MEDS: MORPHINE 4 MG/ML 1ML VIAL IV PRN ×2 (10:44→13:57)
[2022-07-04 10:54] LABS: LIPASE 23 U/L (12-53)
[2022-07-04 10:56] LABS: ALBUMIN 2.9 G/DL (3.2-5.2); ALKALINE PHOSPHATASE 120 U/L (46-116); ALT/SGPT 113 U/L (7.0-40); AST/SGOT 127 U/L (<34); BILIRUBIN,DIRECT 0.2 MG/DL (<0.4); BILIRUBIN,TOTAL 0.5 MG/DL (0.3-1.2); BLOOD UREA NITROGEN 27 MG/DL (9-23); CALCIUM LEVEL 8.2 MG/DL (8.3-10.6); CARBON DIOXIDE LEVEL 28 MMOL/L (20-31); CHLORIDE LEVEL 89 MMOL/L (98-107); CREATININE FOR GFR 0.48 MG/DL (0.55-1.30); GLOMERULAR FILTRATION RATE > 60.0 (>45); GLUCOSE, FASTING 110 MG/DL (74-106); MAGNESIUM LEVEL 1.8 MG/DL (1.8-2.4); POTASSIUM SERUM 4.8 MMOL/L (3.5-5.1); SODIUM LEVEL 123 MMOL/L (136-145); TOTAL PROTEIN 5.9 G/DL (5.7-8.2)
[2022-07-04] MEDS ORDERED: ISOVUE-370 76% 100ML VIAL As Ordered ONE (11:08)
[2022-07-04 12:32] LABS: FREE T4 0.99 NG/DL (0.89-1.76)
[2022-07-04 12:37] LABS: THYROID STIMULATING HORMONE 1.941 uIU/ML (0.55-4.78)
[2022-07-04 12:38] LABS: OSMOLALITY URINE 323 MOSM/KG (50-1400)
[2022-07-04 12:39] LABS: OSMOLALITY SERUM 260 MOSM/KG (280-301)
[2022-07-04 12:55] LABS: SODIUM,RANDOM URINE < 10 MMOL/L
[2022-07-04 13:04] LABS: RSV AMPLIFICATION NEGATIVE (NEGATIVE)
[2022-07-04] MEDS ORDERED: MULT-90 PO (14:20)
[2022-07-04] MEDS ORDERED: MONT10TA97 PO (14:24)
[2022-07-04] MEDS ORDERED: PARO5TAB PO (14:24)
[2022-07-04] MEDS ORDERED: MUPI2OI TOP (14:24)
[2022-07-04] MEDS ORDERED: FEXO-116 PO (14:24)
[2022-07-04] MEDS ORDERED: POLY17PO18 PO (14:31)
[2022-07-04] MEDS ORDERED: HOME MED LIST COMPLETE! XX SCH (14:35)
[2022-07-04] MEDS ORDERED: DRONABINOL 2.5MG CAP (MARINOL) PO PRN (14:40)
[2022-07-04] MEDS ORDERED: BISACODYL 10MG SUPP PR ONE (14:40)
[2022-07-04] MEDS ORDERED: NS 1,000 ML IV SCH ×2 (15:05→23:35)
[2022-07-04 16:00] VITALS: BP 119/67
[2022-07-04] MEDS ORDERED: MORPHINE 2 MG/ML 1ML VIAL IV PRN ×2 (16:10)
[2022-07-04] MEDS ORDERED: PERCOCET 5MG/325MG TAB PO PRN (16:10)
[2022-07-04] MEDS ORDERED: MORPHINE 4 MG/ML 1ML VIAL IV ONE (16:45)
[2022-07-04 17:00] LABS: BLOOD UREA NITROGEN 22 MG/DL (9-23); CALCIUM LEVEL 8.2 MG/DL (8.3-10.6); CARBON DIOXIDE LEVEL 28 MMOL/L (20-31); CHLORIDE LEVEL 90 MMOL/L (98-107); CREATININE FOR GFR 0.47 MG/DL (0.55-1.30); GLOMERULAR FILTRATION RATE > 60.0 (>45); GLUCOSE, FASTING 84 MG/DL (74-106); POTASSIUM SERUM 4.8 MMOL/L (3.5-5.1); SODIUM LEVEL 126 MMOL/L (136-145)
[2022-07-04] MEDS: PERCOCET 5MG/325MG TAB PO PRN (20:40)
[2022-07-04 20:50] VITALS: BP 120/65
[2022-07-04] MEDS ORDERED: traZODone 100 MG TAB PO SCH (21:00)
[2022-07-04] MEDS: MORPHINE 2 MG/ML 1ML VIAL IV PRN (22:38)
[2022-07-04 23:22] LABS: BLOOD UREA NITROGEN 24 MG/DL (9-23); CALCIUM LEVEL 8.4 MG/DL (8.3-10.6); CARBON DIOXIDE LEVEL 28 MMOL/L (20-31); CHLORIDE LEVEL 90 MMOL/L (98-107); GLOMERULAR FILTRATION RATE > 60.0 (>45); GLUCOSE, FASTING 88 MG/DL (74-106); POTASSIUM SERUM 4.7 MMOL/L (3.5-5.1); SODIUM LEVEL 124 MMOL/L (136-145)
[2022-07-05] MEDS: MORPHINE 2 MG/ML 1ML VIAL IV PRN ×2 (03:42→10:25)
[2022-07-05 05:02] LABS: BASO % 0.1 % (0.0-1.0); HEMATOCRIT 30.3 % (36.0-47.0); HEMOGLOBIN 10.2 g/dl (12.0-15.5); LYMPH # 0.5 10^3/uL (1.5-5.0); LYMPH % 4.7 % (24.0-44.0); MEAN CORPUSCULAR HEMOGLOBIN 32.8 pg (27.0-33.0); MEAN CORPUSCULAR HGB CONC 33.7 g/dl (32.0-36.5); MEAN CORPUSCULAR VOLUME 97.4 fl (80.0-96.0); MONO % 9.7 % (2.0-8.0); NEUTROPHILS % 85.1 % (36.0-66.0); PLATELET COUNT, AUTOMATED 326 10^3/uL (150-450); RED BLOOD COUNT 3.11 10^6/uL (4.00-5.40); WHITE BLOOD COUNT 10.6 10^3/uL (4.0-10.0)
[2022-07-05 05:25] LABS: BLOOD UREA NITROGEN 22 MG/DL (9-23); CALCIUM LEVEL 6.5 MG/DL (8.3-10.6); CARBON DIOXIDE LEVEL 25 MMOL/L (20-31); CHLORIDE LEVEL 98 MMOL/L (98-107); CREATININE FOR GFR 0.43 MG/DL (0.55-1.30); GLOMERULAR FILTRATION RATE > 60.0 (>45); GLUCOSE, FASTING 83 MG/DL (74-106); MAGNESIUM LEVEL 1.5 MG/DL (1.8-2.4); PHOSPHORUS LEVEL 3.3 MG/DL (2.4-5.1); POTASSIUM SERUM 3.9 MMOL/L (3.5-5.1); SODIUM LEVEL 131 MMOL/L (136-145)
[2022-07-05 05:40] VITALS: BP 120/63
[2022-07-05] MEDS: PERCOCET 5MG/325MG TAB PO PRN ×2 (06:07→12:26)
[2022-07-05] MEDS ORDERED: LIDOCAINE 1% MDV 20ML VIAL As Ordered ONE (08:12)
[2022-07-05 08:25] VITALS: BP 110/56
[2022-07-05] MEDS ORDERED: LORATADINE 10 MG TAB PO SCH (09:00)
[2022-07-05] MEDS ORDERED: ATORVASTATIN 20 MG TAB PO SCH (09:00)
[2022-07-05] MEDS ORDERED: MONTELUKAST 10 MG TAB PO SCH (09:00)
[2022-07-05] MEDS ORDERED: amLODIPine 5 MG TAB PO SCH (09:00)
[2022-07-05] MEDS ORDERED: LETROZOLE 2.5 MG TAB PO SCH (09:00)
[2022-07-05] MEDS ORDERED: MIRALAX *UNIT DOSE* 17GM PACKET PO SCH (09:00)
[2022-07-05] MEDS ORDERED: PARoxetine 10MG TABLET PO SCH (09:00)
[2022-07-05] MEDS: MAG SULF 1GM/100ML (MAG RUN) 1 GM in IV 1 EA IV SCH ×2 (10:23→10:24)
[2022-07-05] MEDS ORDERED: ELIQ5TAB PO (10:43)
[2022-07-05] MEDS ORDERED: MAGNESIUM OXIDE 400MG TAB (MAG-OX) PO ONE (14:00)
[2022-07-06] MEDS ORDERED: ELIQ5TAB PO ×2 (04:48)
[2022-07-06] MEDS ORDERED: VITMTA PO (04:51)
== END 2022-07-05 13:45 | disposition home or self-care (01) | DRG 300 ==
LOC: EDSEX 09:40 → EDBD 09:40 → M ED 09:40 → M ED INP 13:23 → ENRESERV 14:30 → M MSPAV 15:45
PROVIDERS: ADMIT Internal Medicine; ATTEND Internal Medicine
PROC: 0WB63ZX Excision of Neck, Percutaneous Approach, Diagnostic (ICD-10-PCS; principal; 2022-07-05 09:00)
DX: I82.B11 Acute embolism and thrombosis of right subclavian vein (principal); C34.11 Malignant neoplasm of upper lobe, right bronchus or lung; E46 Unspecified protein-calorie malnutrition; C78.7 Secondary malignant neoplasm of liver and intrahepatic bile duct; C79.70 Secondary malignant neoplasm of unspecified adrenal gland; Z68.1 Body mass index [BMI] 19.9 or less, adult; E87.1 Hypo-osmolality and hyponatremia; C77.8 Secondary and unspecified malignant neoplasm of lymph nodes of multiple regions; D64.9 Anemia, unspecified; I10 Essential (primary) hypertension; F17.210 Nicotine dependence, cigarettes, uncomplicated; E78.5 Hyperlipidemia, unspecified; Z88.2 Allergy status to sulfonamides; Z79.899 Other long term (current) drug therapy; F41.9 Anxiety disorder, unspecified; Z85.3 Personal history of malignant neoplasm of breast; Z92.21 Personal history of antineoplastic chemotherapy; Z92.3 Personal history of irradiation

== ENCOUNTER 2022-07-05 22:33 | Inpatient (IN) | payer MEDICARE, OTHER ==
[~2022-07-05] VITALS: Ht 167.6 cm; Wt 36.0 kg
[~2022-07-05 22:33] MED LIST changes: +ELIQ5TAB PO; +FEXO-116 PO; +MONT10TA97 PO; +MULT-90 PO; +MUPI2OI TOP; +PARO5TAB PO; +POLY17PO18 PO
[2022-07-05] MEDS ORDERED: ONDANSETRON 4MG 2ML VIAL IV ONE (23:05)
[2022-07-05] MEDS ORDERED: MORPHINE 4 MG/ML 1ML VIAL IV PRN (23:05)
[2022-07-05 23:27] LABS: VENOUS BASE EXCESS -1.7 (-2.0-2.0); VENOUS HCO3 22.9 MMOL/L (23.0-27.0); VENOUS O2 SATURATION 68.5 % (60.0-80.0); VENOUS PARTIAL PRESSURE CO2 38.3 mmHg (38.0-50.0); VENOUS PARTIAL PRESSURE O2 34.8 mmHg (30.0-50.0); VENOUS PH 7.394 UNITS (7.330-7.430); VENOUS STANDARD HCO3 22.4 MMOL/L
[2022-07-05 23:31] LABS: BASO % 0.1 % (0.0-1.0); EOS % 0.1 % (0.0-3.0); HEMATOCRIT 32.9 % (36.0-47.0); HEMOGLOBIN 11.4 g/dl (12.0-15.5); LYMPH # 0.4 10^3/uL (1.5-5.0); LYMPH % 4.3 % (24.0-44.0); MEAN CORPUSCULAR HEMOGLOBIN 33.2 pg (27.0-33.0); MEAN CORPUSCULAR HGB CONC 34.7 g/dl (32.0-36.5); MEAN CORPUSCULAR VOLUME 95.9 fl (80.0-96.0); MONO # 1.1 10^3/uL (0.0-0.8); MONO % 10.3 % (2.0-8.0); NEUTROPHILS # 8.7 10^3/uL (1.5-8.5); NEUTROPHILS % 84.6 % (36.0-66.0); PLATELET COUNT, AUTOMATED 364 10^3/uL (150-450); RED BLOOD COUNT 3.43 10^6/uL (4.00-5.40); WHITE BLOOD COUNT 10.3 10^3/uL (4.0-10.0)
[2022-07-05] MEDS ORDERED: LORazepam 2 MG/ML 1ML VIAL IV STA (23:53)
[2022-07-05 23:57] LABS: CPK CREATINE PHOSPHOKINASE 143 U/L (34-145)
[2022-07-05 23:58] LABS: ALBUMIN 3.2 G/DL (3.2-5.2); ALKALINE PHOSPHATASE 119 U/L (46-116); ALT/SGPT 114 U/L (7.0-40); AST/SGOT 118 U/L (<34); BILIRUBIN,DIRECT 0.3 MG/DL (<0.4); BILIRUBIN,TOTAL 0.5 MG/DL (0.3-1.2); BLOOD UREA NITROGEN 27 MG/DL (9-23); CALCIUM LEVEL 8.2 MG/DL (8.3-10.6); CARBON DIOXIDE LEVEL 27 MMOL/L (20-31); CHLORIDE LEVEL 90 MMOL/L (98-107); CREATININE FOR GFR 0.51 MG/DL (0.55-1.30); GLOMERULAR FILTRATION RATE > 60.0 (>45); GLUCOSE, FASTING 95 MG/DL (74-106); MB/CK RELATIVE INDEX 2.09 (< OR =4); POTASSIUM SERUM 4.5 MMOL/L (3.5-5.1); SODIUM LEVEL 123 MMOL/L (136-145); TOTAL PROTEIN 6.1 G/DL (5.7-8.2)
[2022-07-06 01:11] LABS: CK-MB VALUE MASS 2.2 NG/ML (<3.6)
[2022-07-06 01:13] LABS: MB/CK RELATIVE INDEX 1.76 (< OR =4)
[2022-07-06] MEDS ORDERED: ELIQ5TAB PO ×2 (04:48)
[2022-07-06] MEDS ORDERED: VITMTA PO (04:51)
[2022-07-06] MEDS ORDERED: HOME MED LIST COMPLETE! XX SCH (04:55)
[2022-07-06] MEDS ORDERED: HYDROMORPHONE HCL 0.5 MG/ 0.5 ML SYRINGE IV PRN (06:45)
[2022-07-06] MEDS ORDERED: MIRALAX *UNIT DOSE* 17GM PACKET PO PRN (06:45)
[2022-07-06] MEDS ORDERED: DRONABINOL 2.5MG CAP (MARINOL) PO PRN (06:45)
[2022-07-06] MEDS ORDERED: ALBUTEROL SULFATE 2.5MG/0.5ML INH NEB SOLN NEB PRN (06:45)
[2022-07-06] MEDS: NS 1,000 ML IV SCH ×2 (07:32→20:49)
[2022-07-06] MEDS ORDERED: PERCOCET 5MG/325MG TAB PO PRN (07:45)
[2022-07-06] MEDS: IPRATROPIUM 0.5MG/ALBUTEROL 2.5MG INH SOL UD 3ML (DUONEB) NEB SCH ×3 (08:00→19:39)
[2022-07-06 08:06] LABS: BLOOD UREA NITROGEN 27 MG/DL (9-23); CALCIUM LEVEL 7.8 MG/DL (8.3-10.6); CARBON DIOXIDE LEVEL 26 MMOL/L (20-31); CHLORIDE LEVEL 90 MMOL/L (98-107); CREATININE FOR GFR 0.53 MG/DL (0.55-1.30); GLOMERULAR FILTRATION RATE > 60.0 (>45); GLUCOSE, FASTING 91 MG/DL (74-106); POTASSIUM SERUM 4.6 MMOL/L (3.5-5.1); SODIUM LEVEL 125 MMOL/L (136-145)
[2022-07-06] MEDS ORDERED: ATORVASTATIN 20 MG TAB PO SCH (09:00)
[2022-07-06 09:20] LABS: INR 0.85; PROTHROMBIN TIME 11.8 SECONDS (12.5-14.5)
[2022-07-06 09:21] LABS: PARTIAL THROMBOPLASTIN TIME 27.5 SECONDS (24.8-34.2)
[2022-07-06 09:44] VITALS: BP 153/76
[2022-07-06 09:52] LABS: BASO % 0.1 % (0.0-1.0); EOS % 0.1 % (0.0-3.0); HEMOGLOBIN 11.6 g/dl (12.0-15.5); LYMPH # 0.4 10^3/uL (1.5-5.0); LYMPH % 3.4 % (24.0-44.0); MEAN CORPUSCULAR HGB CONC 34.1 g/dl (32.0-36.5); MEAN CORPUSCULAR VOLUME 96.9 fl (80.0-96.0); MONO # 1.1 10^3/uL (0.0-0.8); MONO % 9.2 % (2.0-8.0); NEUTROPHILS % 86.6 % (36.0-66.0); PLATELET COUNT, AUTOMATED 370 10^3/uL (150-450); RED BLOOD COUNT 3.51 10^6/uL (4.00-5.40); WHITE BLOOD COUNT 11.6 10^3/uL (4.0-10.0)
[2022-07-06] MEDS: amLODIPine 5 MG TAB PO SCH (10:00)
[2022-07-06] MEDS: PARoxetine 10MG TABLET PO SCH (10:00)
[2022-07-06] MEDS: MULTIVITAMINS/MINERALS THERAP 1 TAB PO SCH (10:00)
[2022-07-06] MEDS: APIXABAN 5 MG TAB (ELIQUIS) PO SCH ×2 (10:00→20:47)
[2022-07-06] MEDS: MONTELUKAST 10 MG TAB PO SCH (10:01)
[2022-07-06] MEDS: PERCOCET 5MG/325MG TAB PO PRN ×4 (10:01→22:09)
[2022-07-06] MEDS: DOCUSATE SODIUM 100MG CAPSULE PO SCH ×2 (10:01→20:47)
[2022-07-06] MEDS: PANTOPRAZOLE 20 MG TAB PO SCH (12:04)
[2022-07-06] MEDS: LETROZOLE 2.5 MG TAB PO SCH (12:04)
[2022-07-06] MEDS: MUPIROCIN 2% OINT 22 GM TUBE TOP SCH ×3 (12:05→21:53)
[2022-07-06] MEDS: FLUTICASONE PROP 0.05% NASAL SPRAY 16 GM (FLONASE) NARES SCH (12:05)
[2022-07-06 14:00] VITALS: BP 139/61
[2022-07-06 14:50] LABS: BLOOD UREA NITROGEN 26 MG/DL (9-23); CALCIUM LEVEL 7.8 MG/DL (8.3-10.6); CARBON DIOXIDE LEVEL 28 MMOL/L (20-31); CHLORIDE LEVEL 90 MMOL/L (98-107); CREATININE FOR GFR 0.58 MG/DL (0.55-1.30); GLOMERULAR FILTRATION RATE > 60.0 (>45); GLUCOSE, FASTING 97 MG/DL (74-106); POTASSIUM SERUM 4.5 MMOL/L (3.5-5.1); SODIUM LEVEL 125 MMOL/L (136-145)
[2022-07-06 19:41] LABS: BLOOD UREA NITROGEN 26 MG/DL (9-23); CALCIUM LEVEL 7.4 MG/DL (8.3-10.6); CARBON DIOXIDE LEVEL 25 MMOL/L (20-31); CHLORIDE LEVEL 92 MMOL/L (98-107); CREATININE FOR GFR 0.57 MG/DL (0.55-1.30); GLOMERULAR FILTRATION RATE > 60.0 (>45); GLUCOSE, FASTING 127 MG/DL (74-106); POTASSIUM SERUM 4.2 MMOL/L (3.5-5.1); SODIUM LEVEL 124 MMOL/L (136-145)
[2022-07-06] MEDS: SENNA 8.6 MG TAB (SENOKOT) PO SCH (20:47)
[2022-07-06] MEDS ORDERED: traZODone 100 MG TAB PO SCH (21:00)
[2022-07-06 21:47] VITALS: BP 133/71
[2022-07-07] MEDS: IPRATROPIUM 0.5MG/ALBUTEROL 2.5MG INH SOL UD 3ML (DUONEB) NEB SCH ×4 (01:23→22:05)
[2022-07-07] MEDS: PERCOCET 5MG/325MG TAB PO PRN ×3 (02:38→11:30)
[2022-07-07 06:38] VITALS: BP 118/52
[2022-07-07] MEDS: NS 1,000 ML IV SCH ×2 (06:38→15:51)
[2022-07-07 08:00] LABS: ALBUMIN 2.5 G/DL (3.2-5.2); ALKALINE PHOSPHATASE 113 U/L (46-116); ALT/SGPT 102 U/L (7.0-40); AST/SGOT 105 U/L (<34); BILIRUBIN,TOTAL 0.4 MG/DL (0.3-1.2); BLOOD UREA NITROGEN 22 MG/DL (9-23); CARBON DIOXIDE LEVEL 28 MMOL/L (20-31); CHLORIDE LEVEL 92 MMOL/L (98-107); CREATININE FOR GFR 0.61 MG/DL (0.55-1.30); GLOMERULAR FILTRATION RATE > 60.0 (>45); GLUCOSE, FASTING 100 MG/DL (74-106); POTASSIUM SERUM 4.7 MMOL/L (3.5-5.1); SODIUM LEVEL 125 MMOL/L (136-145); TOTAL PROTEIN 5.1 G/DL (5.7-8.2)
[2022-07-07] MEDS: DOCUSATE SODIUM 100MG CAPSULE PO SCH ×2 (09:34→19:46)
[2022-07-07] MEDS: LETROZOLE 2.5 MG TAB PO SCH (09:34)
[2022-07-07] MEDS: PARoxetine 10MG TABLET PO SCH (09:34)
[2022-07-07] MEDS: APIXABAN 5 MG TAB (ELIQUIS) PO SCH ×2 (09:34→19:46)
[2022-07-07] MEDS: PANTOPRAZOLE 20 MG TAB PO SCH (09:34)
[2022-07-07] MEDS: amLODIPine 5 MG TAB PO SCH (09:34)
[2022-07-07] MEDS: MONTELUKAST 10 MG TAB PO SCH (09:35)
[2022-07-07] MEDS: MULTIVITAMINS/MINERALS THERAP 1 TAB PO SCH (09:35)
[2022-07-07] MEDS: FLUTICASONE PROP 0.05% NASAL SPRAY 16 GM (FLONASE) NARES SCH (09:35)
[2022-07-07] MEDS: MUPIROCIN 2% OINT 22 GM TUBE TOP SCH ×3 (09:35→21:00)
[2022-07-07] MEDS ORDERED: MORPHINE 2 MG/ML 1ML VIAL IV ONE ×2 (12:30→23:00)
[2022-07-07 14:00] VITALS: BP 120/51
[2022-07-07] MEDS ORDERED: MORPHINE 2 MG/ML 1ML VIAL IV PRN (15:30)
[2022-07-07] MEDS: MORPHINE 4 MG/ML 1ML VIAL IV PRN ×2 (15:39→19:43)
[2022-07-07] MEDS: cefTRIAXone SOD 1 GM in D5W MINI-BAG PLUS 50 ML IV SCH (15:51)
[2022-07-07] MEDS: SENNA 8.6 MG TAB (SENOKOT) PO SCH (19:46)
[2022-07-07 20:00] VITALS: BP 119/51
[2022-07-07] MEDS ORDERED: PERCOCET 5MG/325MG TAB PO PRN (22:20)
[2022-07-07] MEDS: traZODone 100 MG TAB PO SCH (22:43)
[2022-07-07 23:04] LABS: BLOOD UREA NITROGEN 19 MG/DL (9-23); CALCIUM LEVEL 6.8 MG/DL (8.3-10.6); CARBON DIOXIDE LEVEL 24 MMOL/L (20-31); CHLORIDE LEVEL 95 MMOL/L (98-107); CREATININE FOR GFR 0.55 MG/DL (0.55-1.30); GLOMERULAR FILTRATION RATE > 60.0 (>45); GLUCOSE, FASTING 88 MG/DL (74-106); POTASSIUM SERUM 4.3 MMOL/L (3.5-5.1); SODIUM LEVEL 125 MMOL/L (136-145)
[2022-07-07 23:16] VITALS: BP 125/71
[2022-07-08] MEDS: MORPHINE 4 MG/ML 1ML VIAL IV PRN ×6 (01:31→20:47)
[2022-07-08] MEDS: IPRATROPIUM 0.5MG/ALBUTEROL 2.5MG INH SOL UD 3ML (DUONEB) NEB SCH ×4 (02:57→20:35)
[2022-07-08 06:00] VITALS: BP 133/56
[2022-07-08 06:59] LABS: HEMATOCRIT 32.4 % (36.0-47.0); HEMOGLOBIN 10.6 g/dl (12.0-15.5); MEAN CORPUSCULAR HEMOGLOBIN 32.7 pg (27.0-33.0); MEAN CORPUSCULAR HGB CONC 32.7 g/dl (32.0-36.5); PLATELET COUNT, AUTOMATED 310 10^3/uL (150-450); RED BLOOD COUNT 3.24 10^6/uL (4.00-5.40); WHITE BLOOD COUNT 13.1 10^3/uL (4.0-10.0)
[2022-07-08 07:18] LABS: ALBUMIN 2.3 G/DL (3.2-5.2); ALKALINE PHOSPHATASE 114 U/L (46-116); ALT/SGPT 95 U/L (7.0-40); AST/SGOT 132 U/L (<34); BILIRUBIN,TOTAL 0.3 MG/DL (0.3-1.2); BLOOD UREA NITROGEN 18 MG/DL (9-23); CALCIUM LEVEL 7.1 MG/DL (8.3-10.6); CARBON DIOXIDE LEVEL 22 MMOL/L (20-31); CHLORIDE LEVEL 94 MMOL/L (98-107); CREATININE FOR GFR 0.59 MG/DL (0.55-1.30); GLOMERULAR FILTRATION RATE > 60.0 (>45); GLUCOSE, FASTING 89 MG/DL (74-106); SODIUM LEVEL 125 MMOL/L (136-145); TOTAL PROTEIN 4.9 G/DL (5.7-8.2)
[2022-07-08] MEDS ORDERED: FUROSEMIDE 20MG/2ML VIAL IV ONE (07:25)
[2022-07-08] MEDS: PARoxetine 10MG TABLET PO SCH (08:26)
[2022-07-08] MEDS: MONTELUKAST 10 MG TAB PO SCH (08:26)
[2022-07-08] MEDS: MULTIVITAMINS/MINERALS THERAP 1 TAB PO SCH (08:26)
[2022-07-08] MEDS: APIXABAN 5 MG TAB (ELIQUIS) PO SCH ×2 (08:26→20:48)
[2022-07-08] MEDS: LETROZOLE 2.5 MG TAB PO SCH (08:26)
[2022-07-08] MEDS: PANTOPRAZOLE 20 MG TAB PO SCH (08:26)
[2022-07-08] MEDS: DOCUSATE SODIUM 100MG CAPSULE PO SCH ×2 (08:26→20:47)
[2022-07-08] MEDS: amLODIPine 5 MG TAB PO SCH (08:26)
[2022-07-08] MEDS: MUPIROCIN 2% OINT 22 GM TUBE TOP SCH ×3 (08:27→20:48)
[2022-07-08] MEDS: FLUTICASONE PROP 0.05% NASAL SPRAY 16 GM (FLONASE) NARES SCH (08:27)
[2022-07-08] MEDS: SODIUM CHLORIDE 1 GM TAB PO SCH ×2 (10:01→20:48)
[2022-07-08] MEDS ORDERED: MORPHINE 2 MG/ML 1ML VIAL IV ONE (10:15)
[2022-07-08] MEDS ORDERED: MORPHINE 2 MG/ML 1ML VIAL IV PRN (11:30)
[2022-07-08 14:00] VITALS: BP 122/55
[2022-07-08] MEDS: ONDANSETRON 4MG 2ML VIAL IV PRN ×2 (15:06→20:46)
[2022-07-08] MEDS: cefTRIAXone SOD 1 GM in D5W MINI-BAG PLUS 50 ML IV SCH (16:02)
[2022-07-08] MEDS: SENNA 8.6 MG TAB (SENOKOT) PO SCH (20:48)
[2022-07-08 22:00] VITALS: BP 119/54
[2022-07-08] MEDS: traZODone 100 MG TAB PO SCH (23:25)
[2022-07-09] MEDS: IPRATROPIUM 0.5MG/ALBUTEROL 2.5MG INH SOL UD 3ML (DUONEB) NEB SCH ×4 (01:51→20:13)
[2022-07-09] MEDS: MORPHINE 4 MG/ML 1ML VIAL IV PRN ×5 (05:35→21:57)
[2022-07-09 05:38] VITALS: BP 109/59
[2022-07-09 06:42] LABS: HEMATOCRIT 31.3 % (36.0-47.0); HEMOGLOBIN 10.3 g/dl (12.0-15.5); MEAN CORPUSCULAR HEMOGLOBIN 32.4 pg (27.0-33.0); MEAN CORPUSCULAR HGB CONC 32.9 g/dl (32.0-36.5); MEAN CORPUSCULAR VOLUME 98.4 fl (80.0-96.0); PLATELET COUNT, AUTOMATED 371 10^3/uL (150-450); RED BLOOD COUNT 3.18 10^6/uL (4.00-5.40)
[2022-07-09 07:09] LABS: ALBUMIN 2.6 G/DL (3.2-5.2); ALKALINE PHOSPHATASE 113 U/L (46-116); ALT/SGPT 109 U/L (7.0-40); AST/SGOT 139 U/L (<34); BILIRUBIN,TOTAL 0.3 MG/DL (0.3-1.2); BLOOD UREA NITROGEN 17 MG/DL (9-23); CALCIUM LEVEL 7.4 MG/DL (8.3-10.6); CARBON DIOXIDE LEVEL 23 MMOL/L (20-31); CHLORIDE LEVEL 93 MMOL/L (98-107); CREATININE FOR GFR 0.64 MG/DL (0.55-1.30); GLOMERULAR FILTRATION RATE > 60.0 (>45); GLUCOSE, FASTING 81 MG/DL (74-106); POTASSIUM SERUM 4.5 MMOL/L (3.5-5.1); SODIUM LEVEL 123 MMOL/L (136-145); TOTAL PROTEIN 5.3 G/DL (5.7-8.2)
[2022-07-09 09:00] VITALS: BP 106/55
[2022-07-09] MEDS: amLODIPine 5 MG TAB PO SCH (09:00)
[2022-07-09] MEDS ORDERED: SODIUM CHLORIDE 1 GM TAB PO SCH (09:00)
[2022-07-09] MEDS: DOCUSATE SODIUM 100MG CAPSULE PO SCH (09:15)
[2022-07-09] MEDS: MULTIVITAMINS/MINERALS THERAP 1 TAB PO SCH (09:15)
[2022-07-09] MEDS: PARoxetine 10MG TABLET PO SCH (09:16)
[2022-07-09] MEDS: MONTELUKAST 10 MG TAB PO SCH (09:16)
[2022-07-09] MEDS: APIXABAN 5 MG TAB (ELIQUIS) PO SCH (09:16)
[2022-07-09] MEDS: PANTOPRAZOLE 20 MG TAB PO SCH (09:17)
[2022-07-09] MEDS: MUPIROCIN 2% OINT 22 GM TUBE TOP SCH ×2 (09:17→16:02)
[2022-07-09] MEDS: LETROZOLE 2.5 MG TAB PO SCH (09:17)
[2022-07-09] MEDS: FLUTICASONE PROP 0.05% NASAL SPRAY 16 GM (FLONASE) NARES SCH (09:17)
[2022-07-09 14:00] VITALS: BP 109/54
[2022-07-09] MEDS: cefTRIAXone SOD 1 GM in D5W MINI-BAG PLUS 50 ML IV SCH (16:02)
[2022-07-09] MEDS ORDERED: SCOPOLAMINE 1MG TRANSDERMAL PATCH TOP PRN (19:10)
[2022-07-09] MEDS ORDERED: ACETAMINOPHEN 650MG SUPP PR PRN (19:10)
[2022-07-09] MEDS ORDERED: MORPHINE 10MG/0.5ML ORAL CONCENTRATE SOLUTION U/D SL ONE (20:30)
[2022-07-09] MEDS: ONDANSETRON 4MG 2ML VIAL IV PRN (20:41)
[2022-07-09] MEDS: traZODone 100 MG TAB PO SCH (23:15)
[2022-07-10] MEDS: MORPHINE 10 MG/ML 1ML VIAL IV PRN ×5 (01:05→23:31)
[2022-07-10] MEDS: IPRATROPIUM 0.5MG/ALBUTEROL 2.5MG INH SOL UD 3ML (DUONEB) NEB SCH ×4 (03:19→20:00)
[2022-07-10] MEDS: FLUTICASONE PROP 0.05% NASAL SPRAY 16 GM (FLONASE) NARES SCH (08:13)
[2022-07-10] MEDS ORDERED: MORPHINE 10MG/0.5ML ORAL CONCENTRATE SOLUTION U/D SL PRN ×2 (12:10→15:15)
[2022-07-10] MEDS: LORazepam 1 MG TAB PO PRN (17:13)
[2022-07-10] MEDS ORDERED: MORPHINE 4 MG/ML 1ML VIAL IV PRN (18:45)
[2022-07-10] MEDS: traZODone 100 MG TAB PO SCH (22:57)
[2022-07-11] MEDS: LORazepam 1 MG TAB PO PRN ×6 (01:43→21:28)
[2022-07-11] MEDS: MORPHINE 10 MG/ML 1ML VIAL IV PRN ×9 (01:49→21:28)
[2022-07-11] MEDS: IPRATROPIUM 0.5MG/ALBUTEROL 2.5MG INH SOL UD 3ML (DUONEB) NEB SCH ×3 (07:22→20:00)
[2022-07-11] MEDS: FLUTICASONE PROP 0.05% NASAL SPRAY 16 GM (FLONASE) NARES SCH (08:33)
[2022-07-11] MEDS ORDERED: ATROPINE SULFATE 1% OPHTH SOLN 2ML BTL SL PRN (13:55)
[2022-07-11] MEDS: traZODone 100 MG TAB PO SCH (23:00)
[2022-07-12] MEDS: LORazepam 2 MG/ML 1ML VIAL IV PRN ×6 (00:45→12:43)
[2022-07-12] MEDS: MORPHINE 10 MG/ML 1ML VIAL IV PRN ×6 (00:46→12:42)
[2022-07-12] MEDS: IPRATROPIUM 0.5MG/ALBUTEROL 2.5MG INH SOL UD 3ML (DUONEB) NEB SCH ×3 (02:00→14:00)
[2022-07-12] MEDS: FLUTICASONE PROP 0.05% NASAL SPRAY 16 GM (FLONASE) NARES SCH (07:35)
[2022-07-12] MEDS ORDERED: LORazepam 2 MG/ML 1ML VIAL IV PRN (07:50)
[2022-07-13] MEDS ORDERED: APIXABAN 5 MG TAB (ELIQUIS) PO SCH (09:00)
== END 2022-07-12 15:27 | disposition expired | DRG 840 ==
LOC: M ED 22:33 → EDBD 22:33 → M ED INP 07-06 06:45 → ENRESERV 07-06 08:18 → M MS5PR 07-06 09:34 → OBSVTOIN 07-06 20:14
PROVIDERS: ADMIT Internal Medicine; ATTEND Family Medicine
DX: C77.0 Secondary and unspecified malignant neoplasm of lymph nodes of head, face and neck (principal); E43 Unspecified severe protein-calorie malnutrition; N39.0 Urinary tract infection, site not specified; I82.621 Acute embolism and thrombosis of deep veins of right upper extremity; C34.90 Malignant neoplasm of unspecified part of unspecified bronchus or lung; J90 Pleural effusion, not elsewhere classified; R64 Cachexia; Z68.1 Body mass index [BMI] 19.9 or less, adult; E87.1 Hypo-osmolality and hyponatremia; C79.51 Secondary malignant neoplasm of bone; N13.30 Unspecified hydronephrosis; C79.11 Secondary malignant neoplasm of bladder; C78.7 Secondary malignant neoplasm of liver and intrahepatic bile duct; N17.9 Acute kidney failure, unspecified; I10 Essential (primary) hypertension; N19 Unspecified kidney failure; C50.919 Malignant neoplasm of unspecified site of unspecified female breast; R62.7 Adult failure to thrive; Z79.01 Long term (current) use of anticoagulants; Z51.5 Encounter for palliative care; Z79.899 Other long term (current) drug therapy; Z88.2 Allergy status to sulfonamides; F17.210 Nicotine dependence, cigarettes, uncomplicated; Z92.21 Personal history of antineoplastic chemotherapy; R57.1 Hypovolemic shock

== ENCOUNTER 2022-07-09 14:30 | Outpatient (RCR) | payer MEDICARE, OTHER ==
[~2022-07-09 14:30] MED LIST changes: +VITMTA PO
== END 2022-07-12 ==
LOC: M ONCR 14:30
PROVIDERS: ATTEND General Practice
DX: C77.0 Secondary and unspecified malignant neoplasm of lymph nodes of head, face and neck (principal); C50.511 Malignant neoplasm of lower-outer quadrant of right female breast